=== PATIENT | male | born 1970 ===

== ENCOUNTER 2020-10-11 10:40 | Day surgery (SDC) | payer BC ==
[~2020-10-11 10:40] MED LIST: Metoclopramide 10 MG/2 ML SDV IV PRN
[2020-10-11] MEDS: Sodium Chloride 0.9% 1,000 ML IV SCH (11:07)
[2020-10-11] MEDS ORDERED: Midazolam 1 MG/ML 2 ML SDV ONE ×2 (12:45)
[2020-10-11] MEDS ORDERED: Propofol 200 MG/20 ML SDV ONE ×2 (12:45)
--- NOTE | 2020-10-11 20:16 | OR ---
DATE OF OPERATION: 10/11/2020 SURGEON: Jewel Santillan MD PREOPERATIVE DIAGNOSIS: Screening colonoscopy. POSTOPERATIVE DIAGNOSIS: Screening colonoscopy. PROCEDURE: Colonoscopy with polypectomy. ANESTHESIA: MAC. ESTIMATED BLOOD LOSS: Minimal. COMPLICATIONS: None. INDICATION FOR THE PROCEDURE: Patient is a 50-year-old male here today for screening colonoscopy. No previous scopes. No family history. No change in bowel habits. DESCRIPTION OF PROCEDURE: Informed consent was obtained with the patient. The patient was taken to the operating room, placed on the table in left lateral decubitus position. Monitored anesthesia care was administered. Digital rectal exam performed, was normal. Colonoscope then advanced through the anus, directed toward the cecum. Cecum was reached and identified by appendiceal orifice and ileocecal valve. Colonoscope then slowly withdrawn. He did have a small sessile polyp in the rectum. This was removed with hot snare. The polyp was retrieved. Remainder of the colon was otherwise unremarkable. Colonoscope was then withdrawn. FINDINGS: Rectal polyp. RECOMMENDATIONS: We will follow up on pathology, although appears benign. Would recommend repeat surveillance colonoscopy in 5 years. ABHISHEK/MIKE /[id number]
== END 2020-10-11 13:40 | disposition home or self-care (01) ==
LOC: LB.SDS 10:40
PROVIDERS: ATTEND Surgery
DX: Z12.11 Encounter for screening for malignant neoplasm of colon (principal); D12.8 Benign neoplasm of rectum; I10 Essential (primary) hypertension
CPT/HCPCS: J2250; J2704; J7030

== ENCOUNTER 2021-10-07 18:08 | Observation (INO) | payer BC ==
[2021-10-07] MEDS ORDERED: Furosemide 40 MG/4 ML VIAL IVPUSH ONE (19:22)
[2021-10-07 19:48] LABS: ESTIMATED GFR 102 mL/min (>60)
[2021-10-07 19:49] LABS: TROPONIN I HIGH SENSITIVITY 26.2 pg/ml (<=60.4)
[2021-10-08] MEDS ORDERED: Furosemide 40 MG/4 ML VIAL IVPUSH SCH ×2 (06:00→11:45)
[2021-10-08 08:25] LABS: ESTIMATED GFR 108 mL/min (>60)
[2021-10-08] MEDS ORDERED: LORAZEPAM 2 MG PO PRN (09:19)
[2021-10-08] MEDS ORDERED: DILTIAZEM HCL 360 MG PO SCH (09:30)
[2021-10-08] MEDS ORDERED: NALTREXONE 50 MG PO SCH (09:30)
[2021-10-08] MEDS ORDERED: Non-Formulary Medication 1 Each (Rivaroxaban [Xarelto] 20 MG) PO SCH (11:00)
[2021-10-08 14:51] LABS: ESTIMATED GFR 104 mL/min (>60)
[2021-10-08] MEDS ORDERED: Non-Formulary Medication 1 Each (Rivaroxaban [Xarelto] 20 MG Tablet) PO SCH (20:00)
== END 2021-10-08 20:47 ==
LOC: LB.ED 18:08 → LB.MS 10-08 09:18 → UNDOADMOB 10-08 09:23
PROVIDERS: ADMIT Physician Assistant; ATTEND Physician Assistant
DX: I50.23 Acute on chronic systolic (congestive) heart failure (principal); I48.91 Unspecified atrial fibrillation; Z20.822 Contact with and (suspected) exposure to COVID-19; Z79.899 Other long term (current) drug therapy; Z79.01 Long term (current) use of anticoagulants
CPT/HCPCS: 36415; 71045; 80048; 80053; 81001; 83605; 83735; 83880; 84443; 84484; 85025; 85610; 93005; 93010; 96374; 96376; 99235; 99285-25; A0425; A0429; A9270-GY; G0378; J1940; U0002